=== PATIENT | female | born 1945 | race Caucasian/White ===

== ENCOUNTER 2023-11-20 19:36 | Inpatient (IN) ==
[2023-11-20] MEDS ORDERED: IOPAMIDOL 100 ML BOTTLE IV ONE (19:37)
[2023-11-20 20:33] LABS: Basophils # (Auto) 0.03 K/mcL (0.00-0.30); Basophils % (Auto) 0.2 % (0.0-2.0); Eosinophils # (Auto) 0.02 K/mcL (0.00-0.70); Eosinophils % (Auto) 0.1 % (0.0-7.0); Hematocrit 48.2 % (34.1-44.9); Hemoglobin 16.1 g/dL (11.2-15.7); Lymphocytes # (Auto) 1.18 K/mcL (1.50-4.80); Lymphocytes % (Auto) 7.8 % (15.5-49.0); Mean Cell Volume 100.2 fL (80.0-100.0); Mean Corpuscular HGB Conc 33.4 g/dL (31.0-36.0); Mean Platelet Volume 9.6 fL (8.8-12.5); Monocytes # (Auto) 1.13 K/mcL (0.10-0.90); Monocytes % (Auto) 7.4 % (1.0-12.0); Neutrophils % (Auto) 84.2 % (38.0-78.0); Platelet Count 271 K/mcL (140-440); RBC 4.81 M/mcL (3.59-5.38); Red Cell Distribution Width 13.1 % (11.5-14.5); WBC 15.2 K/mcL (4.5-11.0)
[2023-11-20] MEDS: IPRATROPIUM/ALBUTEROL 3 ML AMPUL.NEB NEB ONE ×2 (20:43→21:09)
[2023-11-20 20:47] LABS: ALT/SGPT 15 U/L (<40); AST/SGOT 27 U/L (<32); Albumin 4.2 gm/dL (3.2-5.2); Albumin/Globulin Ratio 1.5 (1.0-2.3); Alkaline Phosphatase 55 U/L (39-117); Bilirubin,Total 0.4 mg/dL (0.1-1.0); Blood Urea Nitrogen 19 mg/dL (8-23); Calcium 9.4 mg/dL (8.6-10.4); Carbon Dioxide 27 mmol/L (22-30); Chloride 91 mmol/L (96-108); Globulin 2.8 gm/dL (2.2-3.7); Glomerular Filtration Rate 94; Glucose 105 mg/dL (70-105)
[2023-11-21] MEDS: DOXYCYCLINE HYCLATE 100 MG TABLET.ORL PO ONE (00:52)
[2023-11-21] MEDS ORDERED: NICOTINE POLACRILEX 2 MG GUM CHEW/PARK PRN (03:57)
[2023-11-21] MEDS ORDERED: ONDANSETRON 4 MG/2 ML VIAL IV PRN (03:57)
[2023-11-21] MEDS: methylPREDNISolone SOD SUCC 125 MG/2 ML VIAL IV SCH ×2 (06:09→20:13)
[2023-11-21] MEDS: LACTATED RINGERS 1,000 ML IV SCH (06:09)
[2023-11-21] MEDS: 0.9 % SODIUM CHLORIDE 10 ML SYRINGE IV SCH (06:10)
[2023-11-21] MEDS: IPRATROPIUM/ALBUTEROL 3 ML AMPUL.NEB NEB SCH (06:16)
[2023-11-21] MEDS: IPRATROPIUM/ALBUTEROL 3 ML AMPUL.NEB NEB ONE (06:31)
[2023-11-21 06:34] LABS: Basophils # (Auto) 0.03 K/mcL (0.00-0.30); Basophils % (Auto) 0.2 % (0.0-2.0); Eosinophils # (Auto) 0.03 K/mcL (0.00-0.70); Eosinophils % (Auto) 0.2 % (0.0-7.0); Hematocrit 44.7 % (34.1-44.9); Lymphocytes # (Auto) 1.32 K/mcL (1.50-4.80); Lymphocytes % (Auto) 10.2 % (15.5-49.0); Mean Cell Volume 99.6 fL (80.0-100.0); Mean Corpuscular HGB Conc 33.6 g/dL (31.0-36.0); Mean Platelet Volume 9.5 fL (8.8-12.5); Monocytes # (Auto) 1.17 K/mcL (0.10-0.90); Monocytes % (Auto) 9.1 % (1.0-12.0); Neutrophils % (Auto) 80.1 % (38.0-78.0); Platelet Count 238 K/mcL (140-440); RBC 4.49 M/mcL (3.59-5.38); Red Cell Distribution Width 13.2 % (11.5-14.5); WBC 12.9 K/mcL (4.5-11.0)
[2023-11-21 07:04] LABS: ALT/SGPT 12 U/L (<40); AST/SGOT 25 U/L (<32); Albumin 3.9 gm/dL (3.2-5.2); Albumin/Globulin Ratio 1.6 (1.0-2.3); Alkaline Phosphatase 48 U/L (39-117); Bilirubin,Total 0.7 mg/dL (0.1-1.0); Blood Urea Nitrogen 12 mg/dL (8-23); Calcium 9.5 mg/dL (8.6-10.4); Carbon Dioxide 26 mmol/L (22-30); Chloride 96 mmol/L (96-108); Globulin 2.4 gm/dL (2.2-3.7); Glomerular Filtration Rate 94; Glucose 93 mg/dL (70-105)
[2023-11-21] MEDS: methylPREDNISolone SOD SUCC 125 MG/2 ML VIAL ONE (07:42)
[2023-11-21] MEDS: OMEPRAZOLE 20 MG CAPSULE PO SCH (08:48)
[2023-11-21] MEDS: BENZONATATE 100 MG CAPSULE PO SCH (08:48)
[2023-11-21] MEDS: LOSARTAN 50 MG TABLET PO SCH (08:48)
[2023-11-21] MEDS: ASPIRIN 81 MG TAB.CHEW PO SCH (08:48)
[2023-11-21] MEDS: VITAMIN D3 25 MCG TABLET PO SCH (08:48)
[2023-11-21] MEDS: PREGABALIN 25 MG CAPSULE PO SCH (08:48)
[2023-11-21] MEDS: FLUTICASONE UMECLIDIN VILANTER INH SCH (08:49)
[2023-11-21] MEDS: NICOTINE 7 MG PATCH TOPICAL SCH (08:49)
[2023-11-21] MEDS: ENOXAPARIN 40 MG/0.4 ML SYRINGE SQ SCH (08:50)
[2023-11-21] MEDS: ALBUTEROL SULFATE 2.5 MG/3 ML NEBULIZER NEB ONE (08:53)
[2023-11-21] MEDS: METHOCARBAMOL 750 MG TABLET PO PRN (14:33)
[2023-11-21] MEDS: ACETAMINOPHEN 325 MG TABLET PO PRN (18:42)
[2023-11-21] MEDS: SIMVASTATIN 10 MG TABLET PO SCH (20:13)
[2023-11-21] MEDS ORDERED: CPAP SCH (21:00)
[2023-11-22 07:04] LABS: Basophils # (Auto) 0.01 K/mcL (0.00-0.30); Basophils % (Auto) 0.1 % (0.0-2.0); Eosinophils # (Auto) 0 K/mcL (0.00-0.70); Eosinophils % (Auto) 0 % (0.0-7.0); Hematocrit 41.8 % (34.1-44.9); Hemoglobin 13.5 g/dL (11.2-15.7); Lymphocytes # (Auto) 0.68 K/mcL (1.50-4.80); Mean Cell Volume 104.2 fL (80.0-100.0); Mean Corpuscular HGB Conc 32.3 g/dL (31.0-36.0); Mean Platelet Volume 9.8 fL (8.8-12.5); Monocytes # (Auto) 0.64 K/mcL (0.10-0.90); Monocytes % (Auto) 5.7 % (1.0-12.0); Neutrophils % (Auto) 87.8 % (38.0-78.0); Platelet Count 218 K/mcL (140-440); RBC 4.01 M/mcL (3.59-5.38); Red Cell Distribution Width 13.5 % (11.5-14.5); WBC 11.3 K/mcL (4.5-11.0)
[2023-11-22 07:52] LABS: ALT/SGPT 12 U/L (<40); AST/SGOT 22 U/L (<32); Albumin 3.5 gm/dL (3.2-5.2); Albumin/Globulin Ratio 1.5 (1.0-2.3); Alkaline Phosphatase 42 U/L (39-117); Bilirubin,Total 0.4 mg/dL (0.1-1.0); Blood Urea Nitrogen 13 mg/dL (8-23); Calcium 9.3 mg/dL (8.6-10.4); Carbon Dioxide 27 mmol/L (22-30); Chloride 99 mmol/L (96-108); Globulin 2.3 gm/dL (2.2-3.7); Glomerular Filtration Rate 94; Glucose 131 mg/dL (70-105)
[2023-11-22] MEDS: IPRATROPIUM/ALBUTEROL 3 ML AMPUL.NEB NEB PRN (14:20)
[2023-11-22] MEDS: guaiFENesin/DEXTROMETHORPHAN 5ML UD CUP PO PRN (14:38)
[2023-11-23] MEDS: IPRATROPIUM/ALBUTEROL 3 ML AMPUL.NEB NEB SCH (07:05)
[2023-11-23] MEDS: methylPREDNISolone SOD SUCC 125 MG/2 ML VIAL IV SCH (07:08)
[2023-11-23 07:34] LABS: Basophils # (Auto) 0.01 K/mcL (0.00-0.30); Basophils % (Auto) 0.1 % (0.0-2.0); Eosinophils # (Auto) 0.04 K/mcL (0.00-0.70); Eosinophils % (Auto) 0.4 % (0.0-7.0); Hematocrit 41.8 % (34.1-44.9); Hemoglobin 13.3 g/dL (11.2-15.7); Lymphocytes # (Auto) 1.82 K/mcL (1.50-4.80); Mean Cell Volume 104.2 fL (80.0-100.0); Mean Corpuscular HGB Conc 31.8 g/dL (31.0-36.0); Mean Platelet Volume 9.9 fL (8.8-12.5); Monocytes # (Auto) 0.89 K/mcL (0.10-0.90); Monocytes % (Auto) 8.8 % (1.0-12.0); Neutrophils % (Auto) 72.3 % (38.0-78.0); Platelet Count 245 K/mcL (140-440); RBC 4.01 M/mcL (3.59-5.38); Red Cell Distribution Width 13.1 % (11.5-14.5); WBC 10.1 K/mcL (4.5-11.0)
[2023-11-23 07:55] LABS: C-Reactive Protein 7.17 mg/dL (0.03-0.80)
[2023-11-23 08:04] LABS: ALT/SGPT 11 U/L (<40); AST/SGOT 22 U/L (<32); Albumin 3.4 gm/dL (3.2-5.2); Albumin/Globulin Ratio 1.6 (1.0-2.3); Alkaline Phosphatase 42 U/L (39-117); Bilirubin,Total 0.3 mg/dL (0.1-1.0); Blood Urea Nitrogen 14 mg/dL (8-23); Calcium 9.3 mg/dL (8.6-10.4); Carbon Dioxide 28 mmol/L (22-30); Chloride 100 mmol/L (96-108); Globulin 2.1 gm/dL (2.2-3.7); Glomerular Filtration Rate 101; Glucose 77 mg/dL (70-105)
[2023-11-23] MEDS: SENNOSIDES 1 TABLET PO PRN (20:22)
[2023-11-24 06:19] LABS: Basophils # (Auto) 0.03 K/mcL (0.00-0.30); Basophils % (Auto) 0.4 % (0.0-2.0); Eosinophils # (Auto) 0.03 K/mcL (0.00-0.70); Eosinophils % (Auto) 0.4 % (0.0-7.0); Hematocrit 42.9 % (34.1-44.9); Hemoglobin 13.8 g/dL (11.2-15.7); Lymphocytes # (Auto) 1.96 K/mcL (1.50-4.80); Lymphocytes % (Auto) 26.4 % (15.5-49.0); Mean Cell Volume 104.1 fL (80.0-100.0); Mean Corpuscular HGB Conc 32.2 g/dL (31.0-36.0); Mean Platelet Volume 9.8 fL (8.8-12.5); Monocytes # (Auto) 0.82 K/mcL (0.10-0.90); Monocytes % (Auto) 11.1 % (1.0-12.0); Neutrophils % (Auto) 61.3 % (38.0-78.0); Platelet Count 260 K/mcL (140-440); RBC 4.12 M/mcL (3.59-5.38); WBC 7.4 K/mcL (4.5-11.0)
[2023-11-24 06:50] LABS: C-Reactive Protein 3.94 mg/dL (0.03-0.80)
[2023-11-24 07:00] LABS: ALT/SGPT 14 U/L (<40); AST/SGOT 19 U/L (<32); Albumin 3.5 gm/dL (3.2-5.2); Albumin/Globulin Ratio 1.7 (1.0-2.3); Alkaline Phosphatase 37 U/L (39-117); Bilirubin,Total 0.3 mg/dL (0.1-1.0); Blood Urea Nitrogen 18 mg/dL (8-23); Calcium 9.6 mg/dL (8.6-10.4); Carbon Dioxide 31 mmol/L (22-30); Chloride 97 mmol/L (96-108); Globulin 2.1 gm/dL (2.2-3.7); Glomerular Filtration Rate 88; Glucose 79 mg/dL (70-105)
[2023-11-24] MEDS: methylPREDNISolone SOD SUCC 40 MG/ML VIAL IV SCH (08:57)
[2023-11-24] MEDS: FLUTICASONE PROPIONATE SPRAY.NAS NS SCH (14:28)
[2023-11-25 06:23] LABS: Basophils # (Auto) 0.02 K/mcL (0.00-0.30); Basophils % (Auto) 0.3 % (0.0-2.0); Eosinophils # (Auto) 0.06 K/mcL (0.00-0.70); Eosinophils % (Auto) 0.9 % (0.0-7.0); Hematocrit 42.7 % (34.1-44.9); Hemoglobin 13.9 g/dL (11.2-15.7); Lymphocytes # (Auto) 1.93 K/mcL (1.50-4.80); Lymphocytes % (Auto) 27.8 % (15.5-49.0); Mean Cell Volume 102.9 fL (80.0-100.0); Mean Corpuscular HGB Conc 32.6 g/dL (31.0-36.0); Mean Platelet Volume 9.7 fL (8.8-12.5); Monocytes # (Auto) 0.88 K/mcL (0.10-0.90); Monocytes % (Auto) 12.7 % (1.0-12.0); Platelet Count 258 K/mcL (140-440); RBC 4.15 M/mcL (3.59-5.38); Red Cell Distribution Width 12.9 % (11.5-14.5)
[2023-11-25 06:43] LABS: ALT/SGPT 15 U/L (<40); AST/SGOT 19 U/L (<32); Albumin 3.5 gm/dL (3.2-5.2); Albumin/Globulin Ratio 1.8 (1.0-2.3); Alkaline Phosphatase 38 U/L (39-117); Bilirubin,Total 0.3 mg/dL (0.1-1.0); Blood Urea Nitrogen 15 mg/dL (8-23); C-Reactive Protein 2.38 mg/dL (0.03-0.80); Calcium 9.4 mg/dL (8.6-10.4); Carbon Dioxide 29 mmol/L (22-30); Chloride 99 mmol/L (96-108); Globulin 1.9 gm/dL (2.2-3.7); Glomerular Filtration Rate 94; Glucose 76 mg/dL (70-105)
[2023-11-25 06:58] LABS: Phosphorous 3.3 mg/dL (2.5-4.5)
[2023-11-25] MEDS: BUDESONIDE 0.5 MG/2 ML AMPUL.NEB NEB SCH (22:24)
[2023-11-26 06:36] LABS: Basophils # (Auto) 0.02 K/mcL (0.00-0.30); Basophils % (Auto) 0.2 % (0.0-2.0); Eosinophils # (Auto) 0.05 K/mcL (0.00-0.70); Eosinophils % (Auto) 0.5 % (0.0-7.0); Hematocrit 45.5 % (34.1-44.9); Hemoglobin 14.6 g/dL (11.2-15.7); Lymphocytes # (Auto) 1.87 K/mcL (1.50-4.80); Lymphocytes % (Auto) 20.2 % (15.5-49.0); Mean Cell Volume 103.2 fL (80.0-100.0); Mean Corpuscular HGB Conc 32.1 g/dL (31.0-36.0); Mean Platelet Volume 9.5 fL (8.8-12.5); Monocytes # (Auto) 1.04 K/mcL (0.10-0.90); Monocytes % (Auto) 11.2 % (1.0-12.0); Neutrophils % (Auto) 67.5 % (38.0-78.0); Platelet Count 286 K/mcL (140-440); RBC 4.41 M/mcL (3.59-5.38); Red Cell Distribution Width 12.6 % (11.5-14.5); WBC 9.3 K/mcL (4.5-11.0)
[2023-11-26 07:03] LABS: ALT/SGPT 19 U/L (<40); AST/SGOT 22 U/L (<32); Albumin 3.9 gm/dL (3.2-5.2); Albumin/Globulin Ratio 1.7 (1.0-2.3); Alkaline Phosphatase 40 U/L (39-117); Bilirubin,Total 0.3 mg/dL (0.1-1.0); Blood Urea Nitrogen 17 mg/dL (8-23); Carbon Dioxide 28 mmol/L (22-30); Chloride 96 mmol/L (96-108); Globulin 2.3 gm/dL (2.2-3.7); Glomerular Filtration Rate 88; Glucose 79 mg/dL (70-105)
[2023-11-26 07:04] LABS: C-Reactive Protein 1.82 mg/dL (0.03-0.80)
[2023-11-26 07:05] LABS: Phosphorous 3.4 mg/dL (2.5-4.5)
== END 2023-11-27 13:30 | disposition home or self-care (01) | DRG 871 ==
LOC: ED 19:36 → MEDSUR 11-21 05:11
PROVIDERS: ADMIT Student in an Organized Health Care Education/Training Program; ATTEND Student in an Organized Health Care Education/Training Program

== ENCOUNTER 2024-09-20 13:08 | Inpatient (IN) ==
[2024-09-20] MEDS ORDERED: IOPAMIDOL 100 ML BOTTLE IV ONE (13:09)
[2024-09-20] MEDS: IPRATROPIUM/ALBUTEROL 3 ML AMPUL.NEB NEB ONE ×3 (13:47→19:15)
[2024-09-20 14:17] LABS: Basophils # (Auto) 0.01 K/mcL (0.00-0.30); Basophils % (Auto) 0.1 % (0.0-2.0); Eosinophils # (Auto) 0 K/mcL (0.00-0.70); Eosinophils % (Auto) 0 % (0.0-7.0); Hematocrit 42.3 % (34.1-44.9); Hemoglobin 13.6 g/dL (11.2-15.7); Lymphocytes # (Auto) 0.37 K/mcL (1.50-4.80); Lymphocytes % (Auto) 4.7 % (15.5-49.0); Mean Cell Volume 102.2 fL (80.0-100.0); Mean Corpuscular HGB Conc 32.2 g/dL (31.0-36.0); Monocytes # (Auto) 0.31 K/mcL (0.10-0.90); Neutrophils % (Auto) 90.8 % (38.0-78.0); Platelet Count 264 K/mcL (140-440); RBC 4.14 M/mcL (3.59-5.38); WBC 7.8 K/mcL (4.5-11.0)
[2024-09-20 14:40] LABS: ALT/SGPT 26 U/L (<40); AST/SGOT 26 U/L (<32); Albumin/Globulin Ratio 1.5 (1.0-2.3); Alkaline Phosphatase 79 U/L (39-117); Bilirubin,Total 0.4 mg/dL (0.1-1.0); Blood Urea Nitrogen 13 mg/dL (8-23); Calcium 9.8 mg/dL (8.6-10.4); Carbon Dioxide 25 mmol/L (22-30); Chloride 94 mmol/L (96-108); Globulin 2.6 gm/dL (2.2-3.7); Glomerular Filtration Rate 93; Glucose 170 mg/dL (70-105); Potassium 4.3 mmol/L (3.3-5.1); Sodium 130 mmol/L (133-145)
[2024-09-20] MEDS: cefTRIAXone 1 GM VIAL IV ONE (16:14)
[2024-09-20] MEDS: methylPREDNISolone SOD SUCC 125 MG/2 ML VIAL IV ONE (16:14)
[2024-09-20] MEDS: AZITHROMYCIN 500 MG in 0.9 % SODIUM CHLORIDE 250 ML IV ONE (16:14)
[2024-09-20] MEDS: traMADol 50 MG TABLET PO ONE ×2 (16:17→20:46)
[2024-09-20] MEDS: METHOCARBAMOL 1,000 MG/10 ML VIAL IV ONE (20:45)
[2024-09-20] MEDS: FUROSEMIDE 40 MG/4 ML VIAL IV ONE (20:45)
[2024-09-20] MEDS: ACETAMINOPHEN 1,000 MG/100 ML BAG IV ONE (20:46)
[2024-09-20] MEDS ORDERED: ONDANSETRON 4 MG/2 ML VIAL IV PRN (21:21)
[2024-09-20] MEDS: IPRATROPIUM/ALBUTEROL 3 ML AMPUL.NEB NEB PRN (22:12)
[2024-09-20] MEDS: SENNOSIDES 1 TABLET PO SCH (22:35)
[2024-09-20] MEDS: BENZONATATE 100 MG CAPSULE PO SCH (22:35)
[2024-09-20] MEDS: MELATONIN 3 MG TABLET PO SCH (22:35)
[2024-09-20] MEDS: DOCUSATE SODIUM 100 MG CAPSULE PO SCH (22:35)
[2024-09-20] MEDS: 0.9 % SODIUM CHLORIDE 10 ML SYRINGE IV SCH (22:41)
[2024-09-21] MEDS: IPRATROPIUM/ALBUTEROL 3 ML AMPUL.NEB NEB SCH ×2 (01:20→11:01)
[2024-09-21] MEDS: traMADol 50 MG TABLET PO PRN (05:03)
[2024-09-21 06:48] LABS: Basophils # (Auto) 0.02 K/mcL (0.00-0.30); Basophils % (Auto) 0.2 % (0.0-2.0); Eosinophils # (Auto) 0 K/mcL (0.00-0.70); Eosinophils % (Auto) 0 % (0.0-7.0); Hematocrit 41.7 % (34.1-44.9); Hemoglobin 13.5 g/dL (11.2-15.7); Lymphocytes # (Auto) 1.13 K/mcL (1.50-4.80); Lymphocytes % (Auto) 13.9 % (15.5-49.0); Mean Cell Volume 101.2 fL (80.0-100.0); Mean Corpuscular HGB Conc 32.4 g/dL (31.0-36.0); Monocytes # (Auto) 0.87 K/mcL (0.10-0.90); Monocytes % (Auto) 10.7 % (1.0-12.0); Neutrophils % (Auto) 74.8 % (38.0-78.0); Platelet Count 268 K/mcL (140-440); RBC 4.12 M/mcL (3.59-5.38); Red Cell Distribution Width 13.9 % (11.5-14.5); WBC 8.2 K/mcL (4.5-11.0)
[2024-09-21 06:56] LABS: Blood Urea Nitrogen 13 mg/dL (8-23); C-Reactive Protein 1.39 mg/dL (0.03-0.80); Calcium 9.9 mg/dL (8.6-10.4); Carbon Dioxide 30 mmol/L (22-30); Chloride 92 mmol/L (96-108); Glomerular Filtration Rate 93; Glucose 72 mg/dL (70-105); Sodium 132 mmol/L (133-145)
[2024-09-21] MEDS: FUROSEMIDE 40 MG/4 ML VIAL IV ONE (08:01)
[2024-09-21] MEDS: ENOXAPARIN 40 MG/0.4 ML SYRINGE SQ SCH (09:04)
[2024-09-21] MEDS: methylPREDNISolone SOD SUCC 125 MG/2 ML VIAL IV SCH ×2 (09:04→20:32)
[2024-09-21] MEDS: LEVOFLOXACIN 750 MG/150 ML BAG IV SCH (09:05)
[2024-09-21] MEDS: guaiFENesin/CODEINE 10 ML UDC PO ONE (10:52)
[2024-09-21] MEDS: NICOTINE 7 MG PATCH TOPICAL SCH (11:39)
[2024-09-21] MEDS: LORazepam 0.5 MG TABLET PO PRN (12:37)
[2024-09-21] MEDS: METHOCARBAMOL 750 MG TABLET PO PRN (14:14)
[2024-09-21] MEDS: CALCIUM (OYSTER SHELL) 500 MG TABLET PO SCH (14:14)
[2024-09-21] MEDS: ACETAMINOPHEN 500 MG TABLET PO PRN (14:15)
[2024-09-21] MEDS: busPIRone 5 MG TABLET PO SCH (20:31)
[2024-09-21] MEDS: SIMVASTATIN 10 MG TABLET PO SCH (20:38)
[2024-09-21] MEDS: guaiFENesin/CODEINE 10 ML UDC PO PRN (22:08)
[2024-09-22 06:34] LABS: Basophils # (Auto) 0 K/mcL (0.00-0.30); Basophils % (Auto) 0 % (0.0-2.0); Eosinophils # (Auto) 0 K/mcL (0.00-0.70); Eosinophils % (Auto) 0 % (0.0-7.0); Hematocrit 43.3 % (34.1-44.9); Hemoglobin 14.3 g/dL (11.2-15.7); Lymphocytes % (Auto) 6.3 % (15.5-49.0); Mean Cell Volume 100.2 fL (80.0-100.0); Monocytes # (Auto) 0.33 K/mcL (0.10-0.90); Monocytes % (Auto) 5.2 % (1.0-12.0); Platelet Count 279 K/mcL (140-440); RBC 4.32 M/mcL (3.59-5.38); WBC 6.3 K/mcL (4.5-11.0)
[2024-09-22 07:11] LABS: C-Reactive Protein 0.76 mg/dL (0.03-0.80)
[2024-09-22 07:13] LABS: Blood Urea Nitrogen 16 mg/dL (8-23); Calcium 10.7 mg/dL (8.6-10.4); Carbon Dioxide 32 mmol/L (22-30); Chloride 90 mmol/L (96-108); Glomerular Filtration Rate 88; Glucose 133 mg/dL (70-105); Potassium 4.5 mmol/L (3.3-5.1); Sodium 133 mmol/L (133-145)
[2024-09-22] MEDS: VITAMIN E (DL,TOCOPHERYL ACET) 400 UNIT CAPSULE PO SCH (08:20)
[2024-09-22] MEDS: LOSARTAN 50 MG TABLET PO SCH (08:21)
[2024-09-22] MEDS: ASPIRIN 81 MG TAB.CHEW PO SCH (08:21)
[2024-09-22] MEDS: VITAMIN D3 25 MCG TABLET PO SCH (08:22)
[2024-09-22] MEDS: OMEPRAZOLE 20 MG CAPSULE PO SCH (08:22)
[2024-09-22] MEDS ORDERED: KRILL OM DHA EPA PHOSPHO AST PO SCH (09:00)
[2024-09-22] MEDS: PNEUMOCOCCAL 23-VAL P-SAC VAC 0.5 ML SYRINGE IM ONE (09:12)
[2024-09-22] MEDS: FLUTICASONE/SALMETEROL 250/50 INHALER #14 INH SCH (20:13)
[2024-09-23 05:53] LABS: Basophils # (Auto) 0.01 K/mcL (0.00-0.30); Basophils % (Auto) 0.1 % (0.0-2.0); Eosinophils # (Auto) 0.01 K/mcL (0.00-0.70); Eosinophils % (Auto) 0.1 % (0.0-7.0); Hematocrit 47.8 % (34.1-44.9); Hemoglobin 15.8 g/dL (11.2-15.7); Lymphocytes # (Auto) 1.06 K/mcL (1.50-4.80); Lymphocytes % (Auto) 10.9 % (15.5-49.0); Mean Cell Volume 99.4 fL (80.0-100.0); Mean Corpuscular HGB Conc 33.1 g/dL (31.0-36.0); Monocytes # (Auto) 1.23 K/mcL (0.10-0.90); Monocytes % (Auto) 12.7 % (1.0-12.0); Neutrophils % (Auto) 76.1 % (38.0-78.0); Platelet Count 282 K/mcL (140-440); RBC 4.81 M/mcL (3.59-5.38); Red Cell Distribution Width 13.9 % (11.5-14.5); WBC 9.7 K/mcL (4.5-11.0)
[2024-09-23 06:30] LABS: C-Reactive Protein 0.43 mg/dL (0.03-0.80)
[2024-09-23 06:37] LABS: Blood Urea Nitrogen 22 mg/dL (8-23); Calcium 11.4 mg/dL (8.6-10.4); Carbon Dioxide 31 mmol/L (22-30); Chloride 91 mmol/L (96-108); Glomerular Filtration Rate 88; Glucose 93 mg/dL (70-105); Potassium 4.4 mmol/L (3.3-5.1); Sodium 133 mmol/L (133-145)
[2024-09-23] MEDS: methylPREDNISolone SOD SUCC 125 MG/2 ML VIAL IV SCH ×2 (09:38→21:49)
[2024-09-23] MEDS: NYSTATIN 500,000 UNITS/5 ML ORAL.SUSP SSW SCH (17:00)
[2024-09-23] MEDS: IPRATROPIUM/ALBUTEROL 3 ML AMPUL.NEB NEB SCH (18:38)
[2024-09-24] MEDS: predniSONE 20 MG TABLET PO SCH (05:45)
[2024-09-24 07:01] LABS: Basophils # (Auto) 0.01 K/mcL (0.00-0.30); Basophils % (Auto) 0.1 % (0.0-2.0); Eosinophils # (Auto) 0 K/mcL (0.00-0.70); Eosinophils % (Auto) 0 % (0.0-7.0); Hematocrit 44.4 % (34.1-44.9); Hemoglobin 14.5 g/dL (11.2-15.7); Lymphocytes # (Auto) 0.49 K/mcL (1.50-4.80); Lymphocytes % (Auto) 6.4 % (15.5-49.0); Mean Cell Volume 101.6 fL (80.0-100.0); Mean Corpuscular HGB Conc 32.7 g/dL (31.0-36.0); Mean Platelet Volume 10.1 fL (8.8-12.5); Monocytes # (Auto) 0.64 K/mcL (0.10-0.90); Monocytes % (Auto) 8.4 % (1.0-12.0); Neutrophils % (Auto) 84.8 % (38.0-78.0); Platelet Count 258 K/mcL (140-440); RBC 4.37 M/mcL (3.59-5.38); WBC 7.6 K/mcL (4.5-11.0)
[2024-09-24 07:17] LABS: Blood Urea Nitrogen 24 mg/dL (8-23); Calcium 9.7 mg/dL (8.6-10.4); Carbon Dioxide 30 mmol/L (22-30); Chloride 94 mmol/L (96-108); Glomerular Filtration Rate 93; Glucose 118 mg/dL (70-105); Potassium 4.6 mmol/L (3.3-5.1); Sodium 134 mmol/L (133-145)
[2024-09-24] MEDS: SENNOSIDES 1 TABLET PO SCH (13:56)
[2024-09-24] MEDS: POLYETHYLENE GLYCOL 3350 17 GM PACKET PO SCH (13:56)
[2024-09-25 06:30] LABS: ALT/SGPT 32 U/L (<40); AST/SGOT 27 U/L (<32); Albumin 3.8 gm/dL (3.2-5.2); Albumin/Globulin Ratio 1.5 (1.0-2.3); Alkaline Phosphatase 65 U/L (39-117); Bilirubin,Direct 0.2 mg/dL (<0.3); Bilirubin,Total 0.5 mg/dL (0.1-1.0); Blood Urea Nitrogen 23 mg/dL (8-23); Calcium 10.3 mg/dL (8.6-10.4); Carbon Dioxide 34 mmol/L (22-30); Chloride 92 mmol/L (96-108); Globulin 2.6 gm/dL (2.2-3.7); Glomerular Filtration Rate 93; Glucose 78 mg/dL (70-105); Lactate Dehydrogenase 210 U/L (135-225); Phosphorous 2.6 mg/dL (2.5-4.5); Potassium 4.7 mmol/L (3.3-5.1); Sodium 134 mmol/L (133-145); Triglycerides 125 mg/dL (<150); Uric Acid 3.7 mg/dL (2.5-8.0)
[2024-09-25] MEDS: guaiFENesin 600 MG TAB.SR.12H PO SCH (10:10)
[2024-09-25] MEDS: guaiFENesin/CODEINE 10 ML UDC PO SCH (12:16)
[2024-09-25] MEDS: HYDROcodone/APAP 5/325MG TABLET PO SCH (12:16)
[2024-09-25] MEDS: HYDROcodone/APAP 5/325MG TABLET PO PRN (16:57)
[2024-09-25] MEDS: BENZONATATE 100 MG CAPSULE PO PRN (20:11)
[2024-09-26] MEDS: guaiFENesin/CODEINE 10 ML UDC PO PRN (14:10)
[2024-09-26] MEDS: SODIUM CHLORIDE NASAL 1 SPRAY BOTTLE NAS PRN (18:12)
[2024-09-26] MEDS: hydrOXYzine 25 MG TABLET PO PRN (22:04)
[2024-09-27] MEDS: LORazepam 2 MG/ML VIAL IV PRN (02:23)
[2024-09-27] MEDS: predniSONE 20 MG TABLET PO SCH (07:51)
[2024-09-28] MEDS: predniSONE 20 MG TABLET PO SCH (07:57)
[2024-09-28] MEDS: POLYETHYLENE GLYCOL 3350 17 GM PACKET PO ONE (11:03)
[2024-09-28] MEDS: BISMUTH SUBSALICYLATE 15 ML ORAL.SUSP PO PRN (11:22)
[2024-09-28 11:40] LABS: ALT/SGPT 38 U/L (<40); AST/SGOT 28 U/L (<32); Albumin 3.6 gm/dL (3.2-5.2); Albumin/Globulin Ratio 1.3 (1.0-2.3); Alkaline Phosphatase 69 U/L (39-117); Bilirubin,Direct 0.3 mg/dL (<0.3); Bilirubin,Total 0.5 mg/dL (0.1-1.0); Blood Urea Nitrogen 18 mg/dL (8-23); Calcium 9.4 mg/dL (8.6-10.4); Carbon Dioxide 29 mmol/L (22-30); Chloride 92 mmol/L (96-108); Globulin 2.7 gm/dL (2.2-3.7); Glomerular Filtration Rate 93; Glucose 185 mg/dL (70-105); Lactate Dehydrogenase 234 U/L (135-225); Phosphorous 2.3 mg/dL (2.5-4.5); Potassium 4.4 mmol/L (3.3-5.1); Sodium 132 mmol/L (133-145); Triglycerides 129 mg/dL (<150); Uric Acid 3.8 mg/dL (2.5-8.0)
[2024-09-28] MEDS: METOPROLOL TARTRATE 5 MG/5 ML VIAL IV ONE ×2 (12:15→12:36)
[2024-09-28] MEDS ORDERED: METOPROLOL TARTRATE 5 MG/5 ML VIAL IV PRN (12:23)
[2024-09-28] MEDS: LORazepam 0.5 MG TABLET PO PRN (16:00)
[2024-09-29] MEDS: POLYETHYLENE GLYCOL 3350 17 GM PACKET PO PRN (08:22)
[2024-09-29] MEDS: BENZOCAINE/MENTHOL 1 LOZENGE PO PRN (10:04)
[2024-09-29] MEDS: BENZOCAINE ONE 20% 1 SPRAY TOPICAL PRN (10:04)
[2024-09-29] MEDS: IPRATROPIUM 2.5 ML AMPUL.NEB NEB SCH (10:14)
[2024-09-29] MEDS: TIOTROPIUM BROMIDE 18 MCG INHALANT INH SCH (11:07)
[2024-09-29] MEDS: IPRATROPIUM 2.5 ML AMPUL.NEB NEB PRN (14:06)
[2024-09-29] MEDS ORDERED: traMADol (PP) 50 MG TABLET (#4) PO PRN (14:43)
[2024-09-29] MEDS ORDERED: ALBUTEROL SULFATE 60 PUFF INHALER INH PRN (14:43)
[2024-09-29] MEDS: NEUTRA PHOS 1 PACKET PO SCH (20:12)
[2024-09-30] MEDS: predniSONE 10 MG TABLET PO SCH (07:10)
[2024-09-30] MEDS ORDERED: predniSONE 10 MG TABLET PO SCH (08:00)
[2024-09-30] MEDS: METHOCARBAMOL 750 MG TABLET PO PRN (17:22)
[2024-10-02 11:47] VITALS: TEMP 97.8; O2SAT 91
[2024-10-03] MEDS ORDERED: predniSONE 5 MG TABLET PO SCH (08:00)
== END 2024-10-02 17:20 | DRG 190 ==
LOC: MEDSUR 13:08 → ED 13:08 → MEDSUR 21:16
PROVIDERS: ADMIT Student in an Organized Health Care Education/Training Program; ATTEND Internal Medicine